=== PATIENT | female | born 1960 | race African-American/Black ===

== ENCOUNTER 2016-11-29 16:49 | Emergency (ER) | payer OTHER ==
[~2016-11-29] VITALS: Ht 170.2 cm; Wt 67.5 kg
[~2016-11-29 16:49] MED LIST: AMLO-147 PO; ASPI-664 PO; HYDR-3672 PO; LISI-525 PO; SIMV20TA2 PO
[2016-11-29 16:52] VITALS: Ht 170.2 cm; Wt 67.5 kg
[2016-11-29] MEDS ORDERED: ONDANSETRON 4 MG INJ IV STA (17:18)
[2016-11-29] MEDS ORDERED: morphine 4 MG/ML VIAL IV STA ×2 (17:18→18:32)
[2016-11-29] MEDS ORDERED: SOD CHLORIDE 0.9% 1,000 ML IV STA (17:18)
--- NOTE | 2016-11-29 17:47 | RADRPT ---
PROCEDURE: CT chest without contrast. CLINICAL INDICATION: Cough, chest pain TECHNIQUE: CT scan of the chest without contrast was performed on a multi-slice CT scanner. The p atient was scanned without administration of intravenous contrast. Coronal and sagittal reformatted images were obtained from the axial source images. One or more of the following dose reduction techniques were used: - Automated exposure control. - Adjustment of the mA and/or kV according to patient size. Use of iterative reconstruction technique. DLP vol 174.5 mGy CTDI 4.8 mGy-cm COMPARISON: None. FINDINGS: There is no lung consolidation or pleural effusion or pneumothorax. The airways are patent. There is no suspicious nodule or mass. Aortic and coronary artery atherosclerotic calcifications are present. There is ascending aortic ect zay up to 3.9 cm with borderline aneurysmal enlargement. There are no enlarged axillary or mediasti nal lymph nodes. There is no acute upper abdominal abnormality. No evidence of sternal fracture. There are subacute healing fractures seen in the anterior right fi fth, sixth, and seventh ribs. No left-sided rib fractures are present. Degenerative changes are se en within the thoracic spine and the shoulders. IMPRESSION: Subacute healing right anterior fifth, sixth, and seventh rib fractures are seen. No evidence of a sternal fracture. No acute pulmonary process. Atherosclerotic disease is present. There is ascending aortic ectasia with borderline aneurysmal enl argement measuring up to 3.9 cm in the greatest AP dimension. RPTAT: AA .Charly Love MD, MD Date Time Electronically viewed and signed by .Charly Love MD, MD on 11/29/2016 17:47 .J/
[2016-11-29 18:01] LABS: BASOPHILS % 0.4 % (0.0-2.0); EOSINOPHILS # 0.1 10^3/ul (0.0-0.5); EOSINOPHILS % 0.6 % (0.0-7.0); HEMATOCRIT 36.7 % (37.0-47.0); LYMPHOCYTES # 2.4 10^3/ul (0.8-2.9); LYMPHOCYTES % 28.3 % (15.0-51.0); MEAN CORPUSCULAR HEMOGLOBIN 34.1 pg (29.0-33.0); MEAN CORPUSCULAR HGB CONC 35.4 g/dl (32.0-37.0); MEAN CORPUSCULAR VOLUME 96.3 fl (82.0-101.0); MEAN PLATELET VOLUME 9.3 fl (7.4-10.4); MONOCYTE # 0.6 10^3/ul (0.3-0.9); MONOCYTES % 6.6 % (0.0-11.0); NEUTROPHILS % 63.7 % (39.0-77.0); PLATELET COUNT 297 10^3/UL (140-415); RED BLOOD COUNT 3.81 10^6/ul (4.20-5.40); RED CELL DISTRIBUTION WIDTH 12.8 % (11.5-14.5); WHITE BLOOD COUNT 8.3 10^3/ul (4.8-10.8)
[2016-11-29 18:19] LABS: CALCIUM 9.5 mg/dl (8.4-10.2); CREATININE 1.12 mg/dl (0.44-1.00)
[2016-11-29 18:28] LABS: POTASSIUM 2.6 mmol/L (3.5-5.1)
[2016-11-29] MEDS ORDERED: POTASSIUM CHLORIDE (SR) 20 MEQ TAB PO STA (18:28)
[2016-11-29] MEDS ORDERED: ATOR10TA65 PO (18:28)
[2016-11-29] MEDS ORDERED: METO-429 PO (18:29)
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
[2016-11-29] MEDS ORDERED: HYDR-906 PO (18:54)
[2016-11-29] MEDS ORDERED: ONDA4TAB8 PO (18:54)
[2016-11-29] MEDS ORDERED: POTA20TA15 PO (18:56)
[2016-11-29 19:19] VITALS: BP 144/102; PULSE 87; RESP 18
[2016-11-29] MEDS ORDERED: POTASSIUM CHLORIDE (SR) 10 MEQ TAB PO ONE (19:30)
== END 2016-11-29 19:23 | disposition home or self-care (01) ==
LOC: E/R 16:49
DX: S22.41XA Multiple fractures of ribs, right side, initial encounter for closed fracture (principal); E87.6 Hypokalemia; S20.219A Contusion of unspecified front wall of thorax, initial encounter; F17.210 Nicotine dependence, cigarettes, uncomplicated; V49.50XA Passenger injured in collision with unspecified motor vehicles in traffic accident, initial encounter; Z79.82 Long term (current) use of aspirin
CPT/HCPCS: 36415; 71250; 80048; 85025; 93005; 96374; 96375; 96376; J2270; J2405; J7030; Z7502; Z7610